=== PATIENT | female | born 1945 | race Asian ===

== ENCOUNTER 2024-12-01 06:45 | Day surgery (SDC) | payer OTHER ==
[~2024-12-01] VITALS: Ht 144.8 cm; Wt 66.4 kg
[2024-12-01] MEDS ORDERED: ALBUTEROL SULFATE 2.5 MG/0.5 ML NEB SOLUTION NEB ONE (06:46)
[2024-12-01] MEDS ORDERED: LIDOCAINE 4% 50 ML SOLUTION TP ONE (06:46)
[2024-12-01] MEDS ORDERED: BENZOCAINE 20% 50 MCG/SPRAY 57 GM TP ONE (06:46)
[2024-12-01] MEDS ORDERED: LIDOCAINE 2% 11 ML JELLY TP ONE (06:46)
[2024-12-01] MEDS ORDERED: SODIUM CHLORIDE 0.9% 1,000 ML ONE (06:47)
[2024-12-01] MEDS ORDERED: ATOR10TA69 PO (07:03)
[2024-12-01] MEDS ORDERED: LOSA-382 PO (07:03)
[2024-12-01] MEDS ORDERED: AMLO5TAB66 PO (07:03)
[2024-12-01] MEDS ORDERED: METF-1211 PO (07:03)
[2024-12-01] MEDS: SODIUM CHLORIDE 0.9% 1,000 ML IV ONE (07:31)
[2024-12-01 08:10] LABS: GLUCOMETER DEV NAME(LOC) SDS.; GLUCOSE,POINT OF CARE 125 MG/DL (70-110)
[2024-12-01] MEDS ORDERED: FentaNYL CITRATE PF 100 MCG/2 ML VIAL ONE (08:30)
[2024-12-01] MEDS ORDERED: MIDAZOLAM HCL 2 MG/2 ML VIAL ONE (08:30)
[2024-12-01 09:30] VITALS: PULSE 60; RESP 16; O2SAT 100
== END 2024-12-01 13:05 | disposition home or self-care (01) ==
LOC: SURGERY 06:45
PROVIDERS: ATTEND Internal Medicine Critical Care Medicine
DX: R05.3 Chronic cough (principal); R04.2 Hemoptysis; R06.1 Stridor; R91.8 Other nonspecific abnormal finding of lung field; I10 Essential (primary) hypertension; E11.9 Type 2 diabetes mellitus without complications; E78.00 Pure hypercholesterolemia, unspecified; Z79.84 Long term (current) use of oral hypoglycemic drugs; Z79.899 Other long term (current) drug therapy
CPT/HCPCS: 31623; 82962; 87206; 87101; 87220; 87070; 88108; 31624; 94640; 71045; 87015; J3010; J2250; J2919; J7030; J7613; Z7610